=== PATIENT | female | born 1970 | race Caucasian/White ===

== ENCOUNTER 2018-08-19 15:50 | Emergency (ER) | payer MEDICARE, MEDICAID ==
[~2018-08-19] VITALS: Ht 157.5 cm; Wt 118.3 kg
[2018-08-19 15:55] VITALS: BP 184/87
[2018-08-19] MEDS ORDERED: SODIUM CHLORIDE FLUSH 10ML SYR IVF ONE (16:00)
[2018-08-19 16:28] LABS: BASOPHILS # (AUTO) 0.04 x10^3/uL (0-0.1); BASOPHILS % (AUTO) 1 % (0-1); EOSINOPHILS % (AUTO) 3 % (1-7); LYMPHOCYTES # (AUTO) 2.05 x10^3/uL (1-3.4); LYMPHOCYTES % (AUTO) 31 % (22-44); MD NO; MEAN CORPUSCULAR HEMOGLOBIN 29.1 pg (27.0-34.8); MEAN CORPUSCULAR HGB CONC 33.2 g/dL (32.4-35.8); MEAN CORPUSCULAR VOLUME 87.7 fL (80-100); MEAN PLATELET VOLUME 8.2 fL (7.4-10.4); MONOCYTES # (AUTO) 0.55 x10^3/uL (0.2-0.8); MONOCYTES % (AUTO) 8 % (2-9); NEUTROPHILS # (AUTO) 3.75 x10^3/uL (1.8-6.8); NEUTROPHILS % (AUTO) 57 % (42-75); PLATELET COUNT 365 x10^3/uL (130-400); RED BLOOD COUNT 4.45 x10^6/uL (3.82-5.3); RED CELL DISTRIBUTION WIDTH 14.4 % (9.6-15.2)
[2018-08-19 16:37] LABS: ALBUMIN 3.3 g/dL (3.4-5.0); ANION GAP 8 mmol/L (5-15); CHLORIDE 105 mmol/L (98-107); CREATININE 0.76 mg/dL (0.55-1.02)
[2018-08-19] MEDS ORDERED: ALBU0.63 NEB (17:22)
[2018-08-19] MEDS ORDERED: LORazepam 2 MG/ML, 1ML ONE (17:32)
[2018-08-19] MEDS ORDERED: LORazepam 2 MG/ML, 1ML IVPush ONE (18:00)
[2018-08-19 18:46] LABS: CULTURE INDICATED? YES; MICROSCOPIC INDICATED
== END 2018-08-19 19:53 | disposition home or self-care (01) ==
LOC: ED 19:41
DX: N30.00 Acute cystitis without hematuria (principal); M54.5 Low back pain; R60.0 Localized edema; M46.90 Unspecified inflammatory spondylopathy, site unspecified
CPT/HCPCS: 36415; 72148; 80048; 81001; 82040; 85025; 87086; 96374; 99285; J2060